=== PATIENT | male | born 1980 | race Caucasian/White ===

== ENCOUNTER 2019-01-22 17:00 | Emergency (ER) | payer OTHER ==
[~2019-01-22] VITALS: Ht 190.5 cm; Wt 104.3 kg
--- NOTE | 2019-01-22 17:26 | ED Head Injury ---
General Chief Complaint: Head/Cervical Problems Stated Complaint: LT EYE INJ, DIZZY, CONFUSION, DROWSY Source: patient Exam Limitations: no limitations (TRE STEVENS DO) History of Present Illness Date Seen by Provider: Jan 22, 2019 Time Seen by Provider: 17:20 Initial Comments Patient is a 38-year-old male who presents with persistent headache with nausea and vomiting after falling from standing 3 nights ago and striking his face/head off of the roll bar off his car rollbar while at home working in his garage. Patient reports initially feeling dazed and cannot recall if he loss consciousness. Reports fatigue dizziness, impaired memory and headache and nausea gets worse with position change and movement. He has vomited twice today with most recent episode just prior to the arrival. Denies posterior midline neck pain. He's not on anticoagulation therapy. No change in vision. No other acute symptoms or complaints. Patient has not returned to work or been evaluated for these complaints prior to today's ED visit. Occurred: last week Location: frontal Method of Injury: direct blow Loss of Consciousness: dazed Associated Systoms: Headaches, Malaise, Nausea/Vomiting (TRE STEVENS DO) Allergies and Home Medications Allergies Coded Allergies: No Known Drug Allergies (Unverified , 01/22/19) Home Medications Ondansetron 4 Mg Tab.rapdis, 4 MG PO Q6H PRN for NAUSEA/VOMITING Prescribed by: CURRY CONWAY on 01/22/19 193 Patient Home Medication List Home Medication List Reviewed: Yes (TRE STEVENS DO) Review of Systems Review of Systems Constitutional: see HPI Eyes: See HPI, Other Ears, Nose, Mouth, Throat: see HPI Respiratory: see HPI Psychiatric/Neurological: No Symptoms Reported (TRE STEVENS DO) Past Wzzdgye-Qozgmn-Cshdpa Hx Past Med/Social Hx: Reviewed Nursing Past Med/Soc Hx (TRE STEVENS DO) Patient Social History Recent Foreign Travel: No Contact w/Someone Who Travel: No (TRE STEVENS DO) Physical Exam Vital Signs Vital Signs - First Documented 01/22/19 17:17 Temp 99.0 Pulse 72 Resp 18 B/P (MAP) 136/86 (103) Pulse Ox 97 O2 Delivery Room Air (MAN,CURRY Fontanez MD) Vital Signs Capillary Refill : (TRE STEVENS DO) Height, Weight, BMI Height: '" Weight: lbs. oz. kg; BMI Method: General Appearance: WD/WN, no apparent distress HEENT: PERRL/EOMI, other (left orbital contusion with orange and yellow bruising, minimal facial swelling, no obvious gross deformity, left eye scleral hemorrhage, extraocular muscles intact, no pain with extraocular movement.) Neck: No tender midline Respiratory: lungs clear Motor/Sensory: no motor deficit, no sensory deficit (TRE STEVENS DO) Progress/Results/Core Measures Results/Orders My Orders Orders - CURRY CONWAY MD Ketorolac Injection (Toradol Injection) (01/22/19 19:00) Ondansetron Oral Dissolve Tab (Zofran (01/22/19 19:13) Ondansetron Oral Dissolve Tab (Zofran (01/22/19 19:21) (CURRY CONWAY MD) Medications Given in ED Current Medications Medications Dose Ordered Sig/Antolin Route Start Time Stop Time Status Last Admin Dose Admin Ketorolac Tromethamine 60 mg ONCE ONCE IM 01/22/19 19:00 01/22/19 19:02 DC 01/22/19 19:19 60 MG (CURRY CONWAY MD) Vital Signs/I&O 01/22/19 01/22/19 17:17 19:39 Temp 99.0 99.0 Pulse 72 72 Resp 18 18 B/P (MAP) 136/86 (103) 136/86 (103) Pulse Ox 97 97 O2 Delivery Room Air Room Air (CURRY CONWAY MD) Progress Progress Note #1: Time: 18:00 Progress Note I assumed care of the patient from Dr. Stevens at shift change. Awaiting CT scan of Head and Face. Progress Note #2: Time: 18:[address] head read out by Radiologist as no acute fracture or intracranial hemorrhage. maxillofacial study still pending, but on my review of the images I do not see any acute fractures on his maxillofacial studies so will discharge pt to home an d have him follow up with clinic for continued care. Progress Note #3: Time: 19:14 Progress Note Patient was asking for something for headache. Reviewed with pt and family that his symptoms seem to be related to concussion and post concussive headache/syndrome. No evidence of fracture or bleeding on CT scan. Treat with Toradol and Zofran here and then Zofran for home. Encourage fluids and rest at home. Off work until cleared by pcp. If continued blurry vision may need to also see eye doctor. counseled on follow up and return precautions. (CURRY CONWAY MD) Diagnostic Imaging Diagonstic Imaging: CT Plain Films/CT/US/NM/MRI: head Comments NAME: [facility] REC#: [id number] PT STATUS: REG ER : 1980 PHYSICIAN: TRE STEVENS DO ADMIT DATE: 01/22/19/ER FS Draft Date of Exam:01/22/19 CT HEAD WO PROCEDURE: CT head without contrast. TECHNIQUE: Multiple contiguous axial images were obtained through the brain without the use of intravenous contrast. Auto Exposure Controls were utilized during the CT exam to meet ALARA standards for radiation dose reduction. INDICATION: Status post fall several nights ago hitting back of head and left eye on a razor. Headache, dizzy, left eye pain. COMPARISON: None FINDINGS: There is no midline shift or mass effect. The ventricles and sulci are unremarkable. No evidence for acute intracranial hemorrhage, abnormal extra-axial fluid collections or cerebral edema is present. The basilar cisterns are unremarkable. The bony calvarium is intact. Probable small cyst or polyp left maxillary sinus. No air-fluid level. Slight asymmetric soft tissue density over the left eye and periorbital region. IMPRESSION: Negative for acute traumatic intracranial abnormality of the head. Dictated on workstation # [id number] Dict: 01/22/19 1827 Trans: 01/22/19 1829 DO [id number] Interpreted by: CHALINO GUADALUPE DO Electronically signed by: Reviewed: Other (reviewed radiologist report) Diagonstic Imaging: CT Plain Films/CT/US/NM/MRI: facial bones Comments Bilateral indeterminate jugulodigastric and submandibular lymphadenopathy. Negative for orbital or facial bone fracture. No air-fluid levels in the paranasal sinuses. Read by Dr. Larry Mills MD at [phone] and faxed at [phone]. Reviewed: Reviewed [facility] Study (CURRY CONWAY MD) Departure Communication (Admissions) Exam consistent with closed head injury with concern for possible L orbital/facial bone fractures. No vision change in vision. No focal neurologic deficits. Patient declines pain and nausea medications in the ED. Will obtain CT of head and facial bones. Imaging studies pending. Cared endorsed to the oncoming ERP at 18:00 (TRE STEVENS DO) Impression Primary Impression: Concussion with brief (less than one hour) loss of consciousness Additional Impressions: Post concussion syndrome Facial contusion Qualified Codes: S00.83XA - Contusion of other part of head, initial encounter Disposition: HOME, SELF-CARE Condition: Stable Departure-Patient Inst. Decision time for Depature: 19:27 (CURRY CONWAY MD) Referrals: NO,LOCAL PHYSICIAN (PCP) Primary Care Physician Patient Instructions: Contusion (DC), Postconcussion Syndrome (DC), Concussion, Adult (DC) Add. Discharge Instructions: Make sure you are staying well hydrated and getting plenty of rest Follow up with the clinic for clearance to go back to work Alternate Ibuprofen 800 mg every 8 hours as needed for pain with Acetaminophen 650 mg every 6 hours as needed for pain. May use the dissolving nausea medicine as needed every 6 hours to help with nausea and keep your stomach settled All discharge instructions reviewed with patient and/or family. Voiced understanding. Scripts Ondansetron (Ondansetron Odt) 4 Mg Tab.rapdis 4 MG PO Q6H PRN for NAUSEA/VOMITING for 5 Days, #20 TAB 0 Refills Prov: CURRY CONWAY MD 01/22/19 Work/School Note: Work Release Form Date Seen in the Emergency Department: Jan 22, 2019 Return to Work: Jan 28, 2019 Restrictions: Need Release from Doctor TRE STEVENS DO Jan 22, 2019 17:26 CURRY CONWAY MD Jan 22, 2019 18:47
--- NOTE | 2019-01-22 18:29 | Diagnostic Imaging Report ---
PROCEDURE: CT head without contrast. TECHNIQUE: Multiple contiguous axial images were obtained through the brain without the use of intravenous contrast. Auto Exposure Controls were utilized during the CT exam to meet ALARA standards for radiation dose reduction. INDICATION: Status post fall several nights ago hitting back of head and left eye on a razor. Headache, dizzy, left eye pain. COMPARISON: None FINDINGS: There is no midline shift or mass effect. The ventricles and sulci are unremarkable. No evidence for acute intracranial hemorrhage, abnormal extra-axial fluid collections or cerebral edema is present. The basilar cisterns are unremarkable. The bony calvarium is intact. Probable small cyst or polyp left maxillary sinus. No air-fluid level. Slight asymmetric soft tissue density over the left eye and periorbital region. IMPRESSION: Negative for acute traumatic intracranial abnormality of the head. Dictated by: Dictated on workstation # [id number]
[2019-01-22] MEDS ORDERED: KETOROLAC 60 MG/2 ML VIAL IM ONE (19:00)
[2019-01-22] MEDS ORDERED: ONDANSETRON 4 MG (ZOFRAN) ORAL DISSOLVE TAB ONE (19:13)
[2019-01-22] MEDS ORDERED: ONDANSETRON 4 MG (ZOFRAN) ORAL DISSOLVE TAB PO STA (19:21)
[2019-01-22] MEDS ORDERED: ONDA4TAB11 PO (19:30)
[2019-01-22 19:39] VITALS: BP 136/86
--- NOTE | 2019-01-23 08:21 | Diagnostic Imaging Report ---
PROCEDURE: CT maxillofacial without contrast. TECHNIQUE: Multiple contiguous axial images were obtained through the facial bones without the use of intravenous contrast. Auto Exposure Controls were utilized during the CT exam to meet ALARA standards for radiation dose reduction. INDICATION: Trauma, fall. Facial pain. COMPARISON: None available. FINDINGS: Bones: The osseous nasal pyramid is intact. No fracture of the anterior nasal spine or osseous nasal septum. The medial and lateral orbital almeida are intact. No fracture of the orbital floor or rims. The zygomatic arches are intact. No fracture of the maxillary sinus almeida. The pterygoid plates are intact. No mandibular fracture. The temporomandibular joints are normal alignment. Soft tissues: The globes are symmetric without rupture. No traumatic lens dislocation. No retrobulbar hematoma. <> Paranasal sinuses: Small mucosal retention cyst in the left maxillary sinus. Otherwise, paranasal sinuses are clear. Other: No additional concerning findings. IMPRESSION: 1. No acute fracture of the midface or mandible. <> Dictated by: Dictated on workstation # [id number]
== END 2019-01-22 19:39 | disposition home or self-care (01) ==
LOC: ER FS 17:03
DX: S06.0X1A Concussion with loss of consciousness of 30 minutes or less, initial encounter (principal); F07.81 Postconcussional syndrome; W01.198A Fall on same level from slipping, tripping and stumbling with subsequent striking against other object, initial encounter; Y92.015 Private garage of single-family (private) house as the place of occurrence of the external cause
CPT/HCPCS: 70450; 70486; 96372

== ENCOUNTER 2021-04-18 08:46 | Emergency (ER) | payer OTHER ==
[~2021-04-18] VITALS: Ht 187.9 cm; Wt 94.7 kg
[~2021-04-18 08:46] MED LIST: ONDA4TAB11 PO
[2021-04-18] MEDS ORDERED: ONDANSETRON 4 MG (ZOFRAN) ORAL DISSOLVE TAB PO STA (09:00)
[2021-04-18] MEDS ORDERED: LORazepam 0.5 MG (ATIVAN) TABLET PO STA (09:00)
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
[2021-04-18 10:15] VITALS: BP 131/79
== END 2021-04-18 10:15 | disposition home or self-care (01) ==
LOC: EDUNIT# 08:46 → ER FS 08:48
DX: R25.1 Tremor, unspecified (principal); R11.0 Nausea; F41.9 Anxiety disorder, unspecified; I10 Essential (primary) hypertension
CPT/HCPCS: 93005

== ENCOUNTER 2021-05-07 15:10 | Emergency (ER) | payer OTHER ==
[~2021-05-07] VITALS: Ht 185.5 cm; Wt 97.8 kg
[2021-05-07] MEDS ORDERED: ONDANSETRON 4 MG/2 ML (SDV) Z0FRAN IVP ONE (15:30)
[2021-05-07] MEDS ORDERED: fentaNYL INJ 100 MCG/2 ML AMP IVP PRN (15:30)
[2021-05-07 15:50] LABS: BASOPHILS % (AUTO) 0 % (0-10); EOSINOPHILS # (AUTO) 0.3 10^3/uL (0.0-0.3); EOSINOPHILS % (AUTO) 2 % (0-10); HEMATOCRIT 39 % (40-54); HEMOGLOBIN 13.1 g/dL (13.3-17.7); LYMPHOCYTES # (AUTO) 3.3 X 10^3 (1.0-4.0); LYMPHOCYTES % (AUTO) 28 % (12-44); MEAN CORPUSCULAR HEMOGLOBIN 30 pg (25-34); MEAN CORPUSCULAR HGB CONC 34 g/dL (32-36); MEAN CORPUSCULAR VOLUME 89 fL (80-99); MEAN PLATELET VOLUME 9.4 fL (9.0-12.2); MONOCYTES # (AUTO) 1.1 X 10^3 (0.0-1.0); MONOCYTES % (AUTO) 9 % (0-12); NEUTROPHILS # (AUTO) 7.1 X 10^3 (1.8-7.8); NEUTROPHILS % (AUTO) 60 % (42-75); PLATELET COUNT 319 10^3/uL (130-400); WHITE BLOOD COUNT 11.9 10^3/uL (4.3-11.0)
--- NOTE | 2021-05-07 16:07 | Diagnostic Imaging Report ---
INDICATION: Fell and landed on a bar stool. Left-sided pain, question pneumothorax. EXAMINATION: Two-view chest from 05/07/2021. FINDINGS: The cardiomediastinal silhouette is unremarkable. The pulmonary vasculature is within normal limits. The lungs and pleural spaces are clear. No pneumothorax is seen. IMPRESSION: No evidence of an acute cardiopulmonary process. Dictated by: Dictated on workstation # [id number]
[2021-05-07 16:08] LABS: CALCIUM 9.6 MG/DL (8.5-10.1); CREATININE SERUM 0.72 MG/DL (0.60-1.30); POTASSIUM 4.4 MMOL/L (3.6-5.0)
[2021-05-07] MEDS ORDERED: NS 100 ML (IVPB) BAG IV ONE (16:30)
[2021-05-07] MEDS ORDERED: CATHETER FLUSH 10 ML SYR IV PRN (16:30)
[2021-05-07] MEDS ORDERED: IOHEXOL 350 MG/ML 100 ML (OMNIPAQUE 350) VIAL IV ONE (16:30)
[2021-05-07] MEDS ORDERED: HOLD METFORMIN - RECEIVED CONTRAST 20 ML VIAL IV SCH (16:30)
--- NOTE | 2021-05-07 16:48 | Diagnostic Imaging Report ---
PROCEDURE: CT chest with contrast only. TECHNIQUE: Multiple contiguous axial images were obtained through the chest after administration of intravenous contrast. Auto Exposure Controls were utilized during the CT exam to meet ALARA standards for radiation dose reduction. INDICATION: Chest pain, fall. FINDINGS: There is no lung contusion, pneumothorax, or hemothorax. No pleural hematoma. Sternum, manubrium, and diaphragm are intact. The visualized portions of the shoulders are unremarkable. No chest wall mass, hematoma, or other fluid collection. No left or right rib fracture deformity is found. We acknowledge portions of the 8th through 12th ribs on the left are below and outside the [id number] of this exam. The upper abdomen showed no free fluid or free air, and the incompletely visualized liver and spleen appeared intact. No thoracic adenopathy. The aorta is intact and nonaneurysmal. IMPRESSION: No acute or post-traumatic sequelae identified. Unremarkable CT chest. Dictated by: Dictated on workstation # [id number]
--- NOTE | 2021-05-07 16:53 | ED Chest Pain ---
General Chief Complaint: Trauma-Non Activation Stated Complaint: FALL,RIB PAIN Nursing Triage Note: see triage Source: patient Exam Limitations: no limitations, other History of Present Illness Date Seen by Provider: May 07, 2021 Time Seen by Provider: 15:50 Initial Comments Patient is a 40-year-old male who presents with chest wall pain/injury after slipping on wet floor and striking his chest off hard barstool at a local fast food restaurant. Patient has pain located over his left lower pectoral region. It is severe sharp 10 out of 10 worse with movement and deep breathing. No shortness of breath, chest wall crepitus, upper abdominal pain. Patient denies hitting his head headache, loss of consciousness or neck pain. No other acute symptoms or complaints. No other symptoms or complaints. Pain occurred just prior to ED arrival. Timing/Duration: 1/2 hour Severity/Quality: severe Location: other Radiation: other Activities at Onset: other Prior CP/Workup: other Modifying Factors: improves with other Allergies and Home Medications Allergies Coded Allergies: No Known Drug Allergies (Unverified , 01/22/19) Patient Home Medication List Home Medication List Reviewed: Yes Ondansetron (Ondansetron Odt) 4 Mg Tab.rapdis, 4 MG PO Q6H PRN for NAUSEA/VOMITING Prescribed by: CURRY CONWAY on 01/22/191929 Review of Systems Review of Systems Constitutional: see HPI EENTM: See HPI Respiratory: See HPI Cardiovascular: See HPI Gastrointestinal: See HPI Genitourinary: See HPI Musculoskeletal: see HPI Skin: see HPI Psychiatric/Neurological: See HPI Endocrine: See HPI Hematologic/Lymphatic: See HPI All Other Systems Reviewed Negative Unless Noted: Yes Past Sdijbrx-Teqoqi-Nvcghm Hx Patient Social History Tobacco Use?: Yes Tobacco type used: Cigarettes Smoking Status: Current Someday Smoker Substance use?: No Alcohol Use?: No Pt feels they are or have been: No Seasonal Allergies Seasonal Allergies: No Past Medical History Surgeries: Yes (tendon repair, lower back surgery) Respiratory: No Cardiac: Yes Hypertension Neurological: No Genitourinary: No Gastrointestinal: Yes Gastroesophageal Reflux Musculoskeletal: No Endocrine: No HEENT: No Cancer: No Psychosocial: Yes Anxiety, Depression Blood Disorders: No Physical Exam Vital Signs Vital Signs - First Documented 05/07/21 15:25 Temp 36.8 Pulse 87 Resp 24 B/P (MAP) 146/92 (110) Pulse Ox 100 O2 Delivery Room Air Capillary Refill : Less Than 3 Seconds Height, Weight, BMI Height: 6'3.00" Weight: 230lbs. oz. 104.341949rd; 28.00 BMI Method:Stated General Appearance: Anxious, Moderate Distress (Secondary to pain) HEENT: PERRL/EOMI, Pharynx Normal Neck: Normal Inspection, Non Tender Respiratory: Lungs Clear, Normal Breath Sounds, Other (Left lower pectoral pain tenderness, no subcutaneous emphysema, bony crepitus, bruising swelling or contusion visible) Cardiovascular: Regular Rate, Rhythm, No Edema Gastrointestinal: Non Tender, Soft Neurologic/Psychiatric: Alert, Oriented x3, No Motor/Sensory Deficits Focused Exam Sepsis Stage: Ruled Out Progress/Results/Core Measures Results/Orders Lab Results Laboratory Tests Test 05/07/21 15:35 Range/Units White Blood Count 11.9 H 4.3-11.0 10^3/uL Red Blood Count 4.36 4.30-5.52 10^6/uL Hemoglobin 13.1 L 13.3-17.7 g/dL Hematocrit 39 L 40-54 % Mean Corpuscular Volume 89 80-99 fL Mean Corpuscular Hemoglobin 30 25-34 pg Mean Corpuscular Hemoglobin Concent 34 32-36 g/dL Red Cell Distribution Width 12.8 10.0-14.5 % Platelet Count 319 130-400 10^3/uL Mean Platelet Volume 9.4 9.0-12.2 fL Neutrophils (%) (Auto) 60 42-75 % Lymphocytes (%) (Auto) 28 12-44 % Monocytes (%) (Auto) 9 0-12 % Eosinophils (%) (Auto) 2 0-10 % Basophils (%) (Auto) 0 0-10 % Neutrophils # (Auto) 7.1 1.8-7.8 X 10^3 Lymphocytes # (Auto) 3.3 1.0-4.0 X 10^3 Monocytes # (Auto) 1.1 H 0.0-1.0 X 10^3 Eosinophils # (Auto) 0.3 0.0-0.3 10^3/uL Basophils # (Auto) 0.0 0.0-0.1 10^3/uL Sodium Level 133 L 135-145 MMOL/L Potassium Level 4.4 3.6-5.0 MMOL/L Chloride Level 97 L 98-107 MMOL/L Carbon Dioxide Level 22 21-32 MMOL/L Anion Gap 14 5-14 MMOL/L Blood Urea Nitrogen 13 7-18 MG/DL Creatinine 0.72 0.60-1.30 MG/DL Estimat Glomerular Filtration Rate 121 BUN/Creatinine Ratio 18 Glucose Level 100 70-105 MG/DL Calcium Level 9.6 8.5-10.1 MG/DL My Orders Orders - TRE NIX DO Chest Pa/Lat (2 View) (05/07/21 15:27) Fentanyl Inj (Sublimaze Injection) (05/07/21 15:30) Ondansetron Injection (Zofran Injectio (05/07/21 15:30) Cbc With Automated Diff (05/07/21 15:30) Basic Metabolic Panel (05/07/21 15:30) Ct Chest W (05/07/21 16:08) Iohexol Injection (Omnipaque 350 Mg/Ml 1 (05/07/21 16:30) Received Contrast (Hold Metformin- Contr (05/07/21 16:30) Sodium Chloride Flush (Catheter Flush Sy (05/07/21 16:30) Ns (Ivpb) (Sodium Chloride 0.9% Ivpb Bag (05/07/21 16:30) Medications Given in ED Current Medications Medications Dose Ordered Sig/Antolin Route Start Time Stop Time Status Last Admin Dose Admin Fentanyl Citrate 50 mcg Q1H PRN IVP 05/07/21 15:30 05/07/21 15:44 50 MCG Iohexol 75 ml ONCE ONCE IV 05/07/21 16:30 05/07/21 16:31 DC 05/07/21 16:36 75 ML Ondansetron HCl 4 mg ONCE ONCE IVP 05/07/21 15:30 05/07/21 15:31 DC 05/07/21 15:43 4 MG Sodium Chloride 100 ml ONCE ONCE IV 05/07/21 16:30 05/07/21 16:31 DC 05/07/21 16:36 80 ML Vital Signs/I&O 05/07/21 15:25 Temp 36.8 Pulse 87 Resp 24 B/P (MAP) 146/92 (110) Pulse Ox 100 O2 Delivery Room Air Blood Pressure Mean: 110 Departure Communication (Admissions) Chest x-ray: No acute cardiopulmonary disease. CT chest: Blunt chest wall injury with no abdominal pain. No acute findings on imaging studies. Pain addressed and improved with treatment.. Will treat supportively with PCP follow-up as needed. Return precautions reviewed. Patient verbalizes understanding agreement with discharge instructions prior to departure Impression Primary Impression: Contusion of left chest wall Disposition: HOME, SELF-CARE Condition: Stable Departure-Patient Inst. Referrals: NO,LOCAL PHYSICIAN (PCP/Family) Primary Care Physician TRE NIX DO May 07, 2021 16:53
[2021-05-07] MEDS ORDERED: ACHD5005 PO (16:54)
[2021-05-07 17:00] VITALS: BP 128/71
== END 2021-05-07 17:01 | disposition home or self-care (01) ==
LOC: EDUNIT# 15:10 → ER FS 15:11
DX: S20.212A Contusion of left front wall of thorax, initial encounter (principal); I10 Essential (primary) hypertension; F17.210 Nicotine dependence, cigarettes, uncomplicated; W22.8XXA Striking against or struck by other objects, initial encounter
CPT/HCPCS: 36415; 71046; 71260; 80048; 85025